=== PATIENT | male | born 1930 | race Caucasian/White ===

== ENCOUNTER → 2018-10-06 | Outpatient (CLI) | payer OTHER ==
[~2018-10-06] MED LIST: AMLODIPINE BESYL5 MG PO; ASPIRIN81 M1 PO; HYDR25T PO; LEVOFLOXACIN500 MG PO; PLAVIX75 MG PO; SIMVASTATIN40 MG PO; SINGULAIR10 MG PO; TOPROL XL200 MG PO; ULTRAM50 MG PO
--- NOTE | ~2018-10-06 | HM ---
[place], [place] HOLTER MONITOR REPORT NAME: HARVEY CHARLES UNIT #: [id number] ROOM: DOCTOR: THA LAUREN MD BIRTHDATE: [birth year] DOS: 10/11/2018 48-HOUR HOLTER MONITOR The patient remained in sinus rhythm throughout the entire period. Minimum heart rate is 74 beats per minute and maximum heart rate is 120 beats per minute. The patient in sinus rhythm with very frequent premature ventricular contractions. No evidence of any ventricular tachycardia. No tachycardic episodes. No significant pauses. No bradycardic episodes also. FINAL IMPRESSION: Sinus rhythm with frequent PVCs. No ventricular or supraventricular dysrhythmia other than PVCs. No significant bradycardic or tachycardic episodes. THA LAUREN MD CM:HOLTER:HOLTER MONITOR REPORT [id number] THA LAUREN MD
== END | disposition home or self-care (01) ==
LOC: CARD 10:00
DX: I49.9 Cardiac arrhythmia, unspecified (principal)

== ENCOUNTER → 2019-07-26 | Day surgery (SDC) | payer OTHER ==
[~2019-07-26] VITALS: Ht 185.4 cm; Wt 81.6 kg
--- NOTE | ~2019-07-26 | O ---
[place], [place] OPERATIVE NOTE NAME: HARVEY CHARLES UNIT #: [id number] ROOM: DOCTOR: VALDEZ CARRASQUILLO MD BIRTHDATE: [birth year] DOS: 07/26/2019 PREOPERATIVE DIAGNOSIS: Cataract, left eye. POSTOPERATIVE DIAGNOSIS: Cataract, left eye. OPERATION: Extracapsular cataract extraction by phacoemulsification with posterior chamber intraocular lens implantation, left eye. ANESTHESIA: Monitored standby. OPERATIVE FINDINGS AND PROCEDURE: 2% Xylocaine topical anesthetic gel was applied to the eye in the preop area. The patient was taken to the operating room and prepped and draped in the standard fashion for sterile intraocular surgery. A time out procedure was performed verifying correct patient, correct site and corrects lens with Jennifer Carrasquillo M.D. The operating microscope was swung into position and the lid speculum was inserted. Using a Traci paracentesis blade, a paracentesis was made through clear cornea. Viscoelastic was used to fill the anterior chamber. Using a metal keratome a 2.4 mm self-sealing clear corneal cataract incision was made temporally at the limbus. Using a pre-bent 25 gauge cystotome needle, a standard continuous curvilinear capsulorrhexis was performed. The anterior capsule was removed with forceps. The lens nucleus was hydrodissected and phacoemulsified in the posterior chamber. Cortical material was removed with the irrigation aspiration hand piece and the posterior capsule was then polished with a curet under irrigation. The posterior chamber and capsular bag were filled with viscoelastic. A posterior chamber intraocular lens manufactured by: [employer], Model # [id number], and 27.0 diopters in strength were then inserted into the posterior chamber and within the capsular bag using the lens cartridge and injector system. Viscoelastic was removed using the irrigation aspiration handpiece. The anterior chamber was filled with balanced salt solution through the paracentesis. Both the paracentesis site and cataract incisions were hydrated with BSS and verified to be water-tight and self-sealing. The incision checked to be water-tight using a Weck-Kirsten sponge. The integrity of the cataract wound and ocular tension were checked. Lid speculum and drapes were removed. The patient was transferred from the operating room to the recovery room in satisfactory condition. [place], [place] OPERATIVE NOTE NAME: HARVEY CHARLES UNIT #: [id number] ROOM: DOCTOR: VALDEZ CARRASQUILLO MD BIRTHDATE: [birth year] VALDEZ CARRASQUILLO MD CM:OPRECORD:OPERATIVE NOTE [id number] VALDEZ CARRASQUILLO MD 07/26/19 1136 interface
[2019-07-26 10:20] VITALS: BP 154/74
[2019-07-26 11:22] VITALS: BP 113/59
[2019-07-26 11:37] VITALS: BP 106/59
[2019-07-26 11:52] VITALS: BP 114/63
== END | disposition home or self-care (01) ==
LOC: SDC 07-19 11:00
DX: H25.9 Unspecified age-related cataract (principal); I10 Essential (primary) hypertension; I25.10 Atherosclerotic heart disease of native coronary artery without angina pectoris; Z98.890 Other specified postprocedural states; E78.00 Pure hypercholesterolemia, unspecified; Z90.49 Acquired absence of other specified parts of digestive tract; Z88.0 Allergy status to penicillin; Z79.899 Other long term (current) drug therapy; Z87.01 Personal history of pneumonia (recurrent); Z82.49 Family history of ischemic heart disease and other diseases of the circulatory system

== ENCOUNTER → 2019-08-30 | Day surgery (SDC) | payer OTHER ==
[~2019-08-30] VITALS: Ht 182.8 cm; Wt 81.6 kg
--- NOTE | ~2019-08-30 | O ---
[place], [place] OPERATIVE NOTE NAME: HARVEY CHARLES UNIT #: [id number] ROOM: DOCTOR: VALDEZ CARRASQUILLO MD BIRTHDATE: [birth year] DOS: 08/30/2019 PREOPERATIVE DIAGNOSIS: Cataract, right eye. POSTOPERATIVE DIAGNOSIS: Cataract, right eye. OPERATION: Extracapsular cataract extraction by phacoemulsification with posterior chamber intraocular lens implantation, [employer], Model #[id number], and 25.5 diopters in strength were removed in right eye. ANESTHESIA: Monitored standby. OPERATIVE FINDINGS AND PROCEDURE: 2% Xylocaine topical anesthetic gel was applied to the eye in the preop area. The patient was taken to the operating room and prepped and draped in the standard fashion for sterile intraocular surgery. A time out procedure was performed verifying correct patient, correct site and corrects lens with Jennifer Carrasquillo M.D. The operating microscope was swung into position and the lid speculum was inserted. Using a Traci paracentesis blade, a paracentesis was made through clear cornea. Viscoelastic was used to fill the anterior chamber. Using a metal keratome a 2.4 mm self-sealing clear corneal cataract incision was made temporally at the limbus. Using a pre-bent 25 gauge cystotome needle, a standard continuous curvilinear capsulorrhexis was performed. The anterior capsule was removed with forceps. The lens nucleus was hydrodissected and phacoemulsified in the posterior chamber. Cortical material was removed with the irrigation aspiration hand piece and the posterior capsule was then polished with a curet under irrigation. The posterior chamber and capsular bag were filled with viscoelastic. A posterior chamber intraocular lens manufactured by: [employer], Model #[id number], and 25.5 diopters in strength were then inserted into the posterior chamber and within the capsular bag using the lens cartridge and injector system. Viscoelastic was removed using the irrigation aspiration handpiece. The anterior chamber was filled with balanced salt solution through the paracentesis. Both the paracentesis site and cataract incisions were hydrated with BSS and verified to be water-tight and self-sealing. Cefuroxime 1 mg/0.1 mL was injected into the anterior chamber through the paracentesis site. The incision checked to be water-tight using a Weck-Kirsten sponge. The integrity of the cataract wound and ocular tension were checked. Lid speculum and drapes were removed. The patient was transferred from the operating room to the recovery room in satisfactory condition. [place], [place] OPERATIVE NOTE NAME: HARVEY CHARLES UNIT #: [id number] ROOM: DOCTOR: VALDEZ CARRASQUILLO MD BIRTHDATE: [birth year] VALDEZ CARRASQUILLO MD CM:OPRECORD:OPERATIVE NOTE [id number] VALDEZ CARRASQUILLO MD 08/30/19 1116 interface
[2019-08-30 09:00] VITALS: BP 131/71
[2019-08-30 10:54] VITALS: BP 123/63
[2019-08-30 11:09] VITALS: BP 119/62
[2019-08-30 11:22] VITALS: BP 119/68
== END | disposition home or self-care (01) ==
LOC: SDC 08-25 11:00
DX: H25.811 Combined forms of age-related cataract, right eye (principal); I10 Essential (primary) hypertension; I25.10 Atherosclerotic heart disease of native coronary artery without angina pectoris; E78.5 Hyperlipidemia, unspecified; Z88.0 Allergy status to penicillin; Z79.899 Other long term (current) drug therapy; Z98.890 Other specified postprocedural states; Z82.49 Family history of ischemic heart disease and other diseases of the circulatory system